=== PATIENT | male | born 1985 | race Caucasian/White ===

== ENCOUNTER 2025-02-20 21:43 | Emergency (ER) | payer BC, SELFPAY ==
[2025-02-20 22:21] VITALS: BP 146/85
--- NOTE | 2025-02-20 22:39 | ED.GENMED ---
History of Present Illness
<Sven Draper MD, Resident - Last Filed: 02/21/25 10:06>
General
Chief Complaint: Back Pain
Source: patient
Exam Limitations: none
Time Seen by Provider: 02/20/25 22:22
Nursing documentation reviewed up to this point in time: agreed with
History of Present Illness
History of Present Illness:
This is a 40-year-old male with history of hypertension on lisinopril, hyperlipidemia on atorvastatin, diabetes on insulin and Farxiga, history of microdiscectomy L2-3 presenting in the emergency department with complaints of back pain. He informed
me that he was in his usual state of health until around 6 PM when he experienced sudden lower back pain when he sat down. Reports that usually his low back comes with some radiation towards the legs however today her low back was radiating upwards
and it was as if it was ' electric jolt' which was causing him chest discomfort as well. He was worried that might be cardiac which prompted him to visit the emergency department.
Past History
<Sven Draper MD, Resident - Last Filed: 02/21/25 10:06>
Past History
ED Past Medical History: HTN, Hypercholesterolemia and IDDM
ED Past Surgical History: Orthopedic
Patient has exhibited threatening behavior?: No
Social History
Tobacco: Smoker (1 pack/day)
Alcohol: Occasional
Drug: Marijuana
Living: with family
Family History
Family History: Other (Noncontributory)
Review of Systems
<Sven Draper MD, Resident - Last Filed: 02/21/25 10:06>
Review of Systems
Allergies reviewed?: Yes
All Other Systems: ROS reviewed and negative except as documented in HPI and ROS
Constitutional: Denies fever or chills
Respiratory: Denies cough
Cardiac: Reports chest pain; Denies diaphoresis or palpitations
ABD/GI: Denies abdominal pain, nausea or vomiting
: Denies dysuria
Musculoskeletal: Reports back pain
Neurological: Denies dizzy
Endocrine: Denies polyuria
Phy Exam
<Sven Draper MD, Resident - Last Filed: 02/21/25 10:06>
General Physical Exam
General Presentation: mild distress
General age: appears stated age
General Skin: warm
General Habitus: obese
General Mental: alert
General Hydration: appears well hydrated
Cardiovascular Exam
Cardiovascular Exam: no murmur and tachycardia
Pulmonary Exam
Pulmonary Exam: lungs clear and no crackles
Musculoskeletal Exam
Musculoskeletal Exam: back tenderness and neuro vasc intact
Psychiatric Exam
Psychiatric Exam: normal mood/affect
Scores
<Sven Draper MD, Resident - Last Filed: 02/21/25 10:06>
PE Wells Score
Symptoms of DVT: No
No alternative diagnosis better explains the illness: No
Tachycardia with pulse > 100: Yes
Immobilization (>=3 days) or surgery within previous 4 weeks: No
Prior history of DVT or pulmonary embolism: No
Presence of hemoptysis: No
Presence of malignancy: No
Pulmonary Embolism Risk Score: 1.5
Probability of PE: Pt is low risk
<Mata Patel MD - Last Filed: 02/21/25 01:30>
PE Wells Score
Pulmonary Embolism Risk Score: 1.5
Probability of PE: Pt is low risk
Course
<Sven Draper MD, Resident - Last Filed: 02/21/25 10:06>
Orders/Labs/Results
Orders:
Orders
02/20/25 21:45
ECG [Electrocardiogram (*1)] Urgent
Reason for Study: Chest Pain
EKG- Treatment ONCE
02/20/25 22:36
Dexamethasone Sod Phosphate [Decadron] 10 mg IV NOW STA
Ketorolac [Toradol] 15 mg IV NOW STA
02/20/25 22:38
CR Chest - 2 Views Urgent
Comment:
Reason For Exam: Chest pain
CR Lumbar Spine 2 Or 3 Views Urgent
Comment:
Reason For Exam: back pain
02/20/25 23:38
Complete Blood Count/No Diff Urgent
Comprehensive Metabolic Panel Urgent
Troponin I Urgent
02/20/25 23:52
0.9% Sodium Chloride 1000 ml [Nss] 1,000 ml IV BOLUS
Abnormal Lab Results
02/20/25
23:38
RBC 3.93 L 10^6/uL
(4.70-6.10)
Hgb 12.0 L g/dL
(13.0-18.0)
Hct 32.7 L %
(39.0-52.0)
Chloride 108 H mmol/L
(98-107)
Glucose 190 H mg/dl
(70-99)
02/20/25 23:38
02/20/25 23:38
Vital Signs
Initial and Last Documented VS:
Initial Vital Signs
Temp Pulse Resp Pulse Ox
98.7 F 117 26 100
02/20/25 21:52 02/20/25 21:52 02/20/25 21:52 02/20/25 21:52
Last Documented Vital Signs
Temp Pulse Resp BP Pulse Ox
98.7 F 101 19 140/81 96
02/20/25 21:52 02/21/25 01:00 02/21/25 01:00 02/21/25 01:00 02/21/25 01:00
<Mata Paetl MD - Last Filed: 02/21/25 01:30>
Orders/Labs/Results
Orders:
Orders
02/20/25 21:45
ECG [Electrocardiogram (*1)] Urgent
Reason for Study: Chest Pain
EKG- Treatment ONCE
02/20/25 22:36
Dexamethasone Sod Phosphate [Decadron] 10 mg IV NOW STA
Ketorolac [Toradol] 15 mg IV NOW STA
02/20/25 22:38
CR Chest - 2 Views Urgent
Comment:
Reason For Exam: Chest pain
CR Lumbar Spine 2 Or 3 Views Urgent
Comment:
Reason For Exam: back pain
02/20/25 23:38
Complete Blood Count/No Diff Urgent
Comprehensive Metabolic Panel Urgent
Troponin I Urgent
02/20/25 23:52
0.9% Sodium Chloride 1000 ml [Nss] 1,000 ml IV BOLUS
Abnormal Lab Results
02/20/25
23:38
RBC 3.93 L 10^6/uL
(4.70-6.10)
Hgb 12.0 L g/dL
(13.0-18.0)
Hct 32.7 L %
(39.0-52.0)
Chloride 108 H mmol/L
(98-107)
Glucose 190 H mg/dl
(70-99)
02/20/25 23:38
02/20/25 23:38
Vital Signs
Initial and Last Documented VS:
Initial Vital Signs
Temp Pulse Resp Pulse Ox
98.7 F 117 26 100
02/20/25 21:52 02/20/25 21:52 02/20/25 21:52 02/20/25 21:52
Last Documented Vital Signs
Temp Pulse Resp BP Pulse Ox
98.7 F 101 19 140/81 96
02/20/25 21:52 02/21/25 01:00 02/21/25 01:00 02/21/25 01:00 02/21/25 01:00
<Sven Draper MD, Resident - Last Filed: 02/21/25 10:06>
MDM/Problems Addressed
Differential Diagnosis Includes:
Muscular back pain vs less likely fracture vs unlikely cardiac dx
MDM/Problems Addressed:
Check CBC, CMP, troponin
EKG with sinus tachycardia
Give 1 dose of IV Toradol
Dose of IV Decadron 10 mg
Check chest x-ray and lumbar x-ray.
update:
Chest x-ray and lumbar x-ray without any obvious fracture or abnormalities.
Blood work pending
Patient remains tachycardic and states he is thirsty; will give 1 L NS bolus.
CBC with hb of 12. Normal WBC.
Chronic conditions affecting care: DM, HTN and Other (Obesity)
<Sven Draper MD, Resident - Last Filed: 02/21/25 10:06>
*Pulse Oximetry
SaO2: 98
Oxygen Mode of Delivery: Room air
*Critical Care Note
Total Time (30-74mins, 75-104mins- exclusive of procedures): Not Applicable
<Mata Patel MD - Last Filed: 02/21/25 01:30>
*Pulse Oximetry
Patient hypoxic: no
*EKG
Interpreted by ED Provider?: Yes
EKG Intrepretation Date: 02/21/25
Heart Rate: 116
Rate: tachycardiac
Rhythm: sinus
[place]: normal axis
Interval: normal interval
ED Attending Note
<Sven Draper MD, Resident - Last Filed: 02/21/25 10:06>
-
Portions of this chart may have been created with voice recognition software.� Occasional wrong word or��sound alike� substitutions may have occurred due to the inherent limitations of voice recognition software.
<Mata Patel MD - Last Filed: 02/21/25 01:30>
ED Attending Note
Patient seen and examined by attending physician: Yes
ED Attending Note:
Patient presents to ED secondary to sudden onset of left lower back pain radiating up to his chest with shortness of breath, when he sat down in a chair at his brother's house, having barbecue. Back pain is similar to what he has experienced in the
past, which has required surgery, i.e. microdiscectomy 5 years ago. However, at that time, back pain was radiating down his leg, rather than his chest. Denies diaphoresis. Denies dizziness. Denies nausea or vomiting. Leg pain with swelling.
Denies recent travel or surgery. Denies family history of heart disease or blood clots. Patient's medical history significant for hypertension, obesity, hypercholesterolemia, and diabetes. Denies recent change in activities.
Physical Exam
General: mild painful distress, not acutely ill. afebrile
Head: nc/at. eomi
Neck: supple. normal range of motion.
Heart: s1/s2 regular rate and rhythm
Lungs: no acute respiratory distress. clear bilaterally. chest wall nontender to palpation
Back: no midline tenderness. mild left lower back to palpation at level of L3/4, with negative straight leg raise test
Abdomen: normal bowel sounds. not tender.
Neuro: alert and oriented x 3. no focal neurological deficits
Skin: no rash
Psychiatric: well kept. interactive and cooperative
Extremities: no edema. no calf tenderness.
Pt reports sig. improvement in pain after treatment, along with improved HR.
Patient with an unremarkable workup, including EKG and blood work, as well as imaging studies. Patient is chest pain-free and appears comfortable at time of discharge. However, in light of patient's significant cardiac risk factors, patient will
be discharged home with referral to cardiology for an outpatient consultation. Patient advised to return to ED with worsening symptoms.
Discharge Plan
Departure
Patient Disposition: Home (Routine Discharge)
Date of Disposition: 02/21/25
Time of Disposition: 01:28
Patient with high blood pressure during this ER visit?: Yes
Condition: Fair
Discharge Problem:
Back pain without radiation, Chest pain
Instructions: Low Back Pain (DC), Chest Pain CBC Follow Up, BLOOD PRESSURE
Referrals:
melo [Other]
Anderson Miles MD [Active, Cardiology]
UNKNOWN - PT DOES,NOT KNOW [Family Provider]
Activity Restrictions/Additional Instructions:
You were seen in the [facility] emergency department with concerns of low back pain and chest discomfort. We performed x-ray of chest and lumbar spine which did not show obvious fractures or abnormalities. Please follow-up with the
referred wind operations manager for further evaluation. Please return to ED with recurrent chest pain.
Interventions
Interventions:
*Risk Screen - Suicide Last Done: 02/20/25 21:52
*General Assessment Last Done: 02/20/25 21:52
*Neglect/Abuse Screening Last Done: 02/20/25 21:52
*ED- Fall Risk Assessment Last Done: 02/20/25 21:52
*ED COVID-19 Vaccine History Last Done: 02/20/25 21:52
*Nursing Disposition Last Done: 02/21/25 02:03
ED-Musculoskeletal Assessment Last Done: 02/20/25 22:36
ED-Psychological Assessment Last Done: 02/20/25 22:36
Discharge Date and Time
Discharge Date/Time: 02/21/25 02:03
Print Language: [place]ET[place]ESE
[2025-02-20 23:22] VITALS: BP 120/74
[2025-02-20] MEDS: DECADRON 10 MG IV (23:38)
[2025-02-20] MEDS: TORADOL 15 MG IV (23:38)
[2025-02-20 23:52] LABS: Hematocrit 32.7 % (39.0-52.0); Hemoglobin 12.0 g/dL (13.0-18.0); Mean Corp Hgb Conc. 36.7 g/dL (33.0-37.0); Mean Corpuscular Volume 83.2 fL (80.0-94.0); Platelet Count 222 10^3/uL (130-400); Red Cell Dist. Width 12.1 % (11.5-14.5)
[2025-02-20] MEDS: NSS 1000 IV (23:53)
[2025-02-21] VITALS: BP 118/80
[2025-02-21 00:12] LABS: ALT (SGPT) 31 U/L (0-50); AST (SGOT) 21 U/L (17-59); Albumin 4.2 g/dl (3.5-5.0); Alkaline Phosphatase 44 U/L (38-126); Blood Urea Nitrogen 14 mg/dl (9-20); Calcium 9.1 mg/dl (8.4-10.2); Carbon Dioxide 22 mmol/L (22-30); Chloride 108 mmol/L (98-107); Glucose 190 mg/dl (70-99); Potassium 4.1 mmol/L (3.5-5.1); Sodium 139 mmol/L (135-145); Total Protein 7.0 g/dl (6.3-8.2); eGFR > 60.00
[2025-02-21 00:24] LABS: Troponin I < 0.012 ng/ml
[2025-02-21 01:00] VITALS: BP 140/81
== END 2025-02-21 02:03 | disposition home or self-care (01) ==
LOC: EMR 21:43
PROVIDERS: EMERGENCY PHYSICIAN Emergency Medicine
DX: M54.50 Low back pain, unspecified (principal); R07.9 Chest pain, unspecified; E11.9 Type 2 diabetes mellitus without complications; E78.00 Pure hypercholesterolemia, unspecified; I10 Essential (primary) hypertension; F17.210 Nicotine dependence, cigarettes, uncomplicated; Z79.4 Long term (current) use of insulin
CPT/HCPCS: 96374; 96375; 96361; 99285; 71046; 72100; 80053; 84484; 85027; 93005

== ENCOUNTER → 2025-04-02 08:15 | Outpatient (REF) | payer OTHER, SELFPAY | LOC: RCS 08:15 | PROVIDERS: ATTENDING PHYSICIAN Internal Medicine Cardiovascular Disease; FAMILY PHYSICIAN Internal Medicine | DX: R07.9 Chest pain, unspecified (principal); E11.9 Type 2 diabetes mellitus without complications; I10 Essential (primary) hypertension | CPT/HCPCS: 93306; Q9950 ==

== ENCOUNTER → 2025-04-05 07:42 | Outpatient (REF) | payer OTHER, SELFPAY | LOC: RCS 07:42 | PROVIDERS: ATTENDING PHYSICIAN Internal Medicine Cardiovascular Disease; FAMILY PHYSICIAN Internal Medicine | DX: R07.9 Chest pain, unspecified (principal); E11.9 Type 2 diabetes mellitus without complications; I10 Essential (primary) hypertension | CPT/HCPCS: 93017 ==

== ENCOUNTER → 2025-05-18 14:25 | Outpatient (REF) | payer OTHER, SELFPAY | LOC: DHSLP 14:25 | PROVIDERS: ATTENDING PHYSICIAN Internal Medicine Critical Care Medicine; FAMILY PHYSICIAN Internal Medicine | DX: G47.33 Obstructive sleep apnea (adult) (pediatric) (principal) | CPT/HCPCS: 95800 ==